=== PATIENT | female | born 1955 ===

== ENCOUNTER 2020-10-23 11:00 | Inpatient (IN) | payer OTHER ==
[~2020-10-23] VITALS: Ht 167.6 cm; Wt 68.0 kg
[2020-10-23] MEDS ORDERED: ZESTRIL10 M1 PO (13:59)
[2020-10-23] MEDS ORDERED: SIMVAST PO (13:59)
[2020-10-25] MEDS ORDERED: SIMVASTATIN40 MG (15:53)
[2020-10-25] MEDS ORDERED: PROAIR HFA8.5 GM (15:53)
[2020-10-25] MEDS ORDERED: VITAMIN C500 M1 (15:53)
[2020-10-25] MEDS ORDERED: CALCIUM 600-VI1 EAC2 (15:53)
== END 2020-10-26 14:00 | disposition home or self-care (01) | DRG 741 ==
LOC: O/R 10-25 07:29 → OB/GYN 10-25 11:00 → SURH 10-25 20:16
PROVIDERS: ADMIT Obstetrics & Gynecology Gynecologic Oncology; ATTEND Obstetrics & Gynecology Gynecologic Oncology
PROC: 0UT24ZZ Resection of Bilateral Ovaries, Percutaneous Endoscopic Approach (ICD-10-PCS; 2020-10-25)
PROC: 0UT74ZZ Resection of Bilateral Fallopian Tubes, Percutaneous Endoscopic Approach (ICD-10-PCS; 2020-10-25)
PROC: 0DNW4ZZ Release Peritoneum, Percutaneous Endoscopic Approach (ICD-10-PCS; 2020-10-25)
PROC: 0UT94ZZ Resection of Uterus, Percutaneous Endoscopic Approach (ICD-10-PCS; principal; 2020-10-25 14:00)
DX: D06.7 Carcinoma in situ of other parts of cervix (principal); D25.1 Intramural leiomyoma of uterus; N80.0 Endometriosis of uterus; N84.0 Polyp of corpus uteri; N83.202 Unspecified ovarian cyst, left side; N83.201 Unspecified ovarian cyst, right side; I10 Essential (primary) hypertension; E78.00 Pure hypercholesterolemia, unspecified